=== PATIENT | female | born 1955 | race Caucasian/White ===

== ENCOUNTER 2016-12-01 14:54 | Emergency (ER) | payer OTHER ==
[~2016-12-01] VITALS: Ht 182.9 cm; Wt 76.7 kg
[2016-12-01] MEDS ORDERED: ONDANSETRON PF 4 MG/2 ML VIAL. IV ONE (16:00)
[2016-12-01] MEDS ORDERED: PROPOFOL 10 MG/ML (50ML) VIAL. IV ONE (16:00)
[2016-12-01] MEDS ORDERED: fentaNYL PF VIAL 100 MCG/2 ML VIAL IV ONE (16:00)
[2016-12-01 17:14] VITALS: BP 188/80
--- NOTE | 2016-12-01 17:47 | PHYS DOC ---
Past Medical History Past Medical History: Arthritis, Other Additional Past Medical Histor: L)shoulder dislocation x3,R)knee arthritis Past Surgical History: Angioplasty Alcohol Use: Occasionally Drug Use: None Adult General Chief Complaint Chief Complaint: SHOULDER INJURY HPI HPI Patient is a 61 year old female who presents with presents for left shoulder pain for the past few days. States she rotated her shoulder and felt it pop out , she went to outside ED and was told had normal shoulder XR and to f/u with ortho clinic and wear sling. Ortho clinic repeated XR today and noted dislocation, so sent her here. She denies numbness, tingling, other injury or pain. States has dislocated this shoulder prior. No weakness, but has limitation in ROM of left shoulder due to pain and likely dislocation. Review of Systems Review of Systems Constitutional: Denies fever or chills [] Eyes: Denies change in visual acuity, redness, or eye pain [] HENT: Denies nasal congestion or sore throat [] Respiratory: Denies cough or shortness of breath [] Cardiovascular: No additional information not addressed in HPI [] GI: Denies abdominal pain, nausea, vomiting, bloody stools or diarrhea [] : Denies dysuria or hematuria [] Musculoskeletal: Denies back pain [] Integument: Denies rash or skin lesions [] Neurologic: Denies headache, focal weakness or sensory changes [] Endocrine: Denies polyuria or polydipsia [] Current Medications Current Medications Current Medications Medications (Trade) Dose Ordered Sig/Leena Start Time Stop Time Status Last Admin Dose Admin Fentanyl Citrate (Fentanyl 2ml Vial) 50 mcg 1X ONCE 12/01/16 16:00 12/01/16 16:01 DC 12/01/16 16:45 50 MCG Ondansetron HCl (Zofran) 4 mg 1X ONCE 12/01/16 16:00 12/01/16 16:01 DC 12/01/16 16:41 4 MG Propofol (Diprivan) 80 mg 1X ONCE 12/01/16 16:00 12/01/16 16:01 DC 12/01/16 17:13 80 MG Allergies Allergies Allergies Coded Allergies Type Severity Reaction Last Updated Verified codeine Allergy Intermediate "[place] like having a heart attack. Like my heart raced." 12/01/16 Yes Uncoded Allergies Type Severity Reaction Last Updated Verified Magnetic Contrast Allergy Unknown Hives 12/01/16 Physical Exam Physical Exam Constitutional: Well developed, well nourished, no acute distress, non-toxic appearance. [] HENT: Normocephalic, atraumatic, bilateral external ears normal, oropharynx moist, no oral exudates, nose normal. [] Eyes: PERRLA, EOMI. [] Neck: Normal range of motion, supple. [] Cardiovascular:Heart rate regular rhythm [] Lungs & Thorax: Bilateral breath sounds clear to auscultation [] Abdomen: Bowel sounds normal, soft, no tenderness. [] Skin: Warm, dry, no erythema, no rash. [] Back: No tenderness, no CVA tenderness. [] Extremities: LUE with step off deformity but no discoloration; Full ROM with elbow/wrist/hand; Shoulder ROM very limited due to pain; Can pronate/supinate; Can make fist/ok sign/thumb up/finger cross and spread; Can flex/ex wrist; Good radial pulse and brisk cap refill equal bilaterally; sensation intact to light touch m/u/r/ax nerves Neurologic: Alert and oriented X 3, normal motor function, normal sensory function, no focal deficits noted. [] Psychologic: Affect normal, judgement normal, mood normal. [] Current Patient Data Vital Signs Vital Signs Date Time Temp Pulse Resp B/P (MAP) Pulse Ox O2 Delivery O2 Flow Rate FiO2 12/01/16 17:14 98.2 80 18 97 12/01/16 16:45 Room Air 12/01/16 15:20 140/69 (92) Radiology/Procedures Radiology/Procedures Left shoulder x-ray IMPRESSION: Probable posterior subluxation or dislocation as outlined above DICTATED and SIGNED BY: LYNN RIVER MD DATE: 12/01/16 1503 Postreduction left shoulder x-ray as interpreted by me with no fracture or dislocation. Course & Med Decision Making Course & Med Decision Making Pertinent Labs and Imaging studies reviewed. (See chart for details) She tolerated sedation and reduction well. She has returned to baseline. She is ambulatory with a steady gait and ready to go home. Return precautions given. She understands and agrees with plan. Dragon Disclaimer Dragon Disclaimer This electronic medical record was generated, in whole or in part, using a voice recognition dictation system. Procedural Sedation Proc Sed Indication: Left shoulder dislocation reduction, closed Consent: I have discussed with the patient and/or the patient call center support representative the indication, alternatives, and the possible risks and /or complications of the planned procedure and the anesthesia methods. The patient and/or patient call center support representative appear to understand and agree to proceed. Pre-Sedation Documentation and Exam: As above Airway Assessment: normal. Prior History of Anesthesia Complications: none. ASA Classification: 2 Sedation/ Anesthesia Plan: IV fentanyl and IV propofol Medications Used: see nursing notes. Monitoring and Safety: The patient was placed on a embedded engineer and vital signs, pulse oximetry and level of consciousness were continuously evaluated throughout the procedure. The patient was closely monitored until recovery from the medications was complete and the patient had returned to baseline status. Respiratory therapy was on standby at all times during the procedure. (The following sections must be completed) Post-Sedation Vital Signs: See vitals Post-Sedation Exam: AOx3, ambulatory with a steady gait, shoulder immobilized, equal 2+ radial pulses, sensation intact to light touch m/u/r/ax nerves, can make ok sign/finger cross and spread/fist/thumb up, can flex/ex wrist and pronate/supinate Complications: none. Vital Signs Vital Signs Date Time Temp Pulse Resp B/P (MAP) Pulse Ox O2 Delivery O2 Flow Rate FiO2 12/01/16 17:14 98.2 80 18 97 12/01/16 16:45 Room Air 12/01/16 15:20 140/69 (92) Joint Reduction Procedure Joint Indication: Joint dislocation Consent: Consent was obtained. Procedure: The pre-reduction exam showed distal perfusion and neurologic function to be normal.. The patient was placed in the appropriate position. Anesthesia/pain control fentanyl IV and propofol IV. Reduction of the left shoulder was performed by traction counter traction. Post reduction films were obtained and revealed satisfactory reduction. A post-reduction exam revealed distal perfusion and neurologic function to be normal. The affected area was immobilized with shoulder immobilizer. The patient tolerated the procedure well. Complications: none. Departure Departure Impression: Primary Impression: Closed dislocation of left shoulder Disposition: 01 HOME, SELF-CARE Condition: STABLE Referrals: MATTHEW MARAVILLA MD (PCP) Patient Instructions: Shoulder Dislocation, [id number] Additional Instructions: Follow-up with your primary care doctor and orthopedics clinic. Return for any concerns. Problem Qualifiers Primary Impression: Closed dislocation of left shoulder Encounter type: initial encounter Qualified Codes: S43.005A - Unspecified dislocation of left shoulder joint, initial encounter Negrito MONROY MD Dec 01, 2016 17:47
--- NOTE | 2016-12-02 09:11 | RAD ---
Indication interval reduction. AP and Y views of the left shoulder were obtained at 1735 and are compared to an exam proximally to an after hours earlier. There is been interval reduction of previously identified dislocation. No fracture is seen.
== END 2016-12-01 18:25 | disposition home or self-care (01) ==
LOC: ER 14:54
DX: S43.005A Unspecified dislocation of left shoulder joint, initial encounter (principal); M19.90 Unspecified osteoarthritis, unspecified site; Z95.5 Presence of coronary angioplasty implant and graft; Z88.5 Allergy status to narcotic agent; Z91.041 Radiographic dye allergy status; X50.9XXA Other and unspecified overexertion or strenuous movements or postures, initial encounter; Y93.89 Activity, other specified; Y99.8 Other external cause status; Y92.89 Other specified places as the place of occurrence of the external cause
CPT/HCPCS: 23650; 73030; 96374; 99284; J2405; J2704; J3010

== ENCOUNTER → 2019-12-22 | Outpatient (CLI) | payer OTHER ==
--- NOTE | 2019-12-22 08:45 | KCIC ---
EXAM: DUAL ENERGY X-RAY ABSORPTIOMETRY (DEXA). HISTORY: Postmenopausal screening. FINDINGS: The lowest measured T-score is -1.6 in the left proximal femur, based on a bone mineral density of 0.744 g/cm^2. Refer to the worksheets for full detail. In comparison with the prior study of 02/05/2016, average bone mineral density at the lumbar spine has changed +6.2%, while the average density at the hips has changed -1.3%. IMPRESSION: Low bone mass. Bone mineral density yields a T-score between -1.0 and -2.5. Fracture risk is increased. FRAX was not calculated. METHODOLOGY: Dual energy x-ray absorptiometry was performed to measure bone mineral density. The following analysis is based on the 2019 Official Positions of the International Society for Clinical Densitometry: Measurements of the hips and the average of L1-L4 are preferred. When the spine and/or hip cannot be feasibly measured or interpreted, or in the setting of hyperparathyroidism, distal radial bone mineral density may be measured. The lumbar spine T-score is based on the average bone mineral density of L1-L4. In the setting of artifact or anatomic abnormality, some lumbar levels may be excluded, and the remaining levels used for calculation. A single lumbar level is not used for diagnosis, and if only a single level is available for assessment, another anatomic site will be used to assign a diagnosis. The hip T-score is based on the bone mineral density measurement of the femoral neck or total proximal femur of either side, whichever is lowest. Bilateral mean values are not used for diagnosis. The forearm T-score is derived from 33% of the distal radius of the nondominant forearm. For postmenopausal and perimenopausal women, and men age 50 or older, of all ethnic groups, T-scores are calculated through comparison of the current measurement with the NHANES III database standard for females aged 20-29 years. The lowest T-score of the evaluated anatomic sites is used to assign a diagnosis based on the World Health Organization densitometric classification. In premenopausal females and males younger than age 50, a Z-score is calculated based on population specific reference data for patient sex and self-reported ethnicity. Electronically signed by: Crystal Jaramillo MD (12/22/2019 8:42 AM) [id number]
== END | disposition home or self-care (01) ==
LOC: KCIC DEXA 07:58
PROVIDERS: ATTEND Family Medicine
DX: M89.8X8 Other specified disorders of bone, other site (principal)
CPT/HCPCS: 77080

== ENCOUNTER 2021-09-06 16:54 | Emergency (ER) | payer OTHER ==
[~2021-09-06] VITALS: Ht 182.9 cm; Wt 78.6 kg
--- NOTE | 2021-09-06 18:15 | PHYS DOC ---
Past Medical History Past Medical History: A-Fib, Arthritis, Hypertension, VA, Other Additional Past Medical Histor: L)shoulder dislocation x3,R)knee arthritis, RA Past Surgical History: Angioplasty Smoking Status: Never Smoker Alcohol Use: Occasionally Drug Use: None General Adult EDM: Chief Complaint: MULTIPLE COMPLAINTS HPI: HPI: Patient is a 66 year old female who is here with multiple, vague complaints. Symptoms have been present for 2 or 3 days. She reports that "I just feel off." She indicates she has intermittent lightheadedness/dizziness, with abrupt standing only. She denies any symptoms of vertigo. She denies fall, head injury, syncope. She denies any focal motor weakness. She denies abdominal pain, chest pain, palpitations, dyspnea, nausea, vomiting, diarrhea, constipat ion. She denies any urinary symptoms. She denies fevers or chills. She reports that she had a brief episode of some mild myalgias, she took her temperature, noticed it was normal, then she took an at-home Covid test which was negative. She has been repeatedly checking her blood pressure at home with 2 different cuffs and has been increasingly worried about elevated blood pressu re readings. She has not yet contacted her PCP for this problem. She reports being fully vaccinated against COVID-19, including booster vaccination. She reports that she is eating and drinking well. She denies any injury or trauma. He denies any new stress or anxiety symptoms. She reports compliance with all of her medications. Review of Systems: Review of Systems: Constitutional: Denies fever or chills. [] Eyes: Denies change in visual acuity. [] HENT: Denies nasal congestion or sore throat. [] Respiratory: Denies cough or shortness of breath. [] Cardiovascular: Denies chest pain, palpitations, denies peripheral edema. Denies syncope GI: Denies abdominal pain, nausea, vomiting, or diarrhea : Denies urinary symptoms Musculoskeletal: Denies back pain or joint pain. [] Integument: Denies rash. [] Neurologic: Denies headache, focal weakness or sensory changes. Reports mild intermittent dizziness. Denies vertigo. Denies syncope, head injury or loss of consciousness Psychiatric: Denies depression or anxiety. [] Heart Score: C/O Chest Pain: No Risk Factors: Risk Factors: DM, Current or recent (<one month) smoker, HTN, HLP, family history of CAD, obesity. Risk Scores: Score 0 - 3: 2.5% MACE over next 6 weeks - Discharge Home Score 4 - 6: 20.3% MACE over next 6 weeks - Admit for Clinical Observation Score 7 - 10: 72.7% MACE over next 6 weeks - Early Invasive Strategies Allergies: Allergies: Allergies Coded Allergies Type Severity Reaction Last Updated Verified codeine Allergy Intermediate "[place] like having a heart attack. Like my heart raced." 12/01/16 Yes Uncoded Allergies Type Severity Reaction Last Updated Verified Magnetic Contrast Allergy Unknown Hives 12/01/16 Physical Exam: PE: Constitutional: Well developed, well nourished, no acute distress, non-toxic appearance. [] HENT: Normocephalic, atraumatic, bilateral external ears normal, oropharynx moist, no oral exudates, nose normal. [] Eyes: PERRL, EOMI, conjunctiva normal, no discharge. No scleral icterus. No nystagmus. Neck: Normal range of motion, no tenderness, supple, no stridor. No thyromegaly. No meningismus. Trachea is midline. Cardiovascular:Heart rate regular rhythm, was 2 radial pulses, +2 posterior tibial pulses bilaterally Lungs & Thorax: Bilateral breath sounds clear to auscultation, no rales, rhonchi or wheezes. No evidence of chest or thorax trauma. Abdomen: Abdomen is soft, nondistended, nontender to palpation. No palpable masses organomegaly. No CVA tenderness. Skin: Warm, dry, no erythema, no rash. Open wounds. No jaundice. Chronic venous stasis skin changes bilateral lower extremities, right worse than left, present for years, no change today. Back: No tenderness, no CVA tenderness. [] Extremities: No tenderness, no cyanosis, no clubbing, ROM intact, no edema. No calf tenderness. Neurologic: Alert and oriented X 3, normal motor function, normal sensory function, no focal deficits noted. [] Psychologic: Mildly anxious but pleasant and cooperative. Current Patient Data: Vital Signs: Vital Signs Date Time Temp Pulse Resp B/P (MAP) Pulse Ox O2 Delivery O2 Flow Rate FiO2 09/06/21 17:07 97.7 81 16 161/103 (122) 96 Room Air 97.7 EKG: EKG: EKG is interpreted at 1740 Rhythm is sinus Rate is 73 bpm [place] is left No STEMI Radiology/Procedures: Radiology/Procedures: IMAGING REPORT Signed PATIENT: STEFFANY FUENTES ACCOUNT: [id number] : 1955 LOCATION: ER AGE: 66 SEX: F EXAM STATUS: PRE ER ORD. PHYSICIAN: VALARIE VALDIVIA DO REASON: dizziness PROCEDURE: CT HEAD WO CONTRAST EXAMINATION: CT head without IV contrast INDICATION:66 years, Female, dizziness. COMPARISON: None TECHNIQUE: Spiral acquisition of contiguous images from the skull base to the vertex were obtained. Sagittal and coronal 2D reformatted series were provided by the technologist. Soft tissue and bone window algorithms were reviewed. Exposure: One or more of the following individualized dose reduction techniques were utilized for this examination: 1. Automated exposure control 2. Adjustment of the mA and/or kV according to patient size 3. Use of iterative reconstruction technique. FINDINGS: Neither mass, midline shift, intracranial hemorrhage, acute/subacute ischemic changes, nor extraaxial fluid collections are seen. Brain parenchymal volume loss. Supratentorial periventricular white matter hypodensities, indeterminate but most likely representing chronic microangiopathic disease. The ventricular system is within normal limits of variation. The paranasal sinuses, mastoid air cells, and middle ears are clear.The orbital contents appear within normal limits. IMPRESSION: 1. No evidence of acute intracranial abnormality. 2. Supratentorial periventricular white matter hypodensities, indeterminate but most likely representing chronic microangiopathic disease. Electronically signed by: Chel Lugo DO (09/06/2021 7:21 PM) [facility] DICTATED and SIGNED BY: CHEL LUGO DO DATE: 09/06/211918 Course & Med Decision Making: Course & Med Decision Making Pertinent Labs and Imaging studies reviewed. (See chart for details) The findings, differential diagnosis and plan of care discussed with her. There is no obvious evidence of acute life-threatening pathology on ED work-up today. She has no pain or physical complaints. No focal weakness, nonfocal exam, no current indication for further invasive exams, imaging or admission at this time based on current clinical presentation. I strongly urged her to contact her PCP for follow-up and for further discussion of the symptoms. Return precautions are given. [place] Disclaimer: Dragon Disclaimer: This electronic medical record was generated, in whole or in part, using a voice recognition dictation system. Departure Departure Impression: Primary Impression: Dizziness Disposition: 01 HOME / SELF CARE / HOMELESS Condition: STABLE Referrals: MATTHEW MARAVILLA MD (PCP) Patient Instructions: Dizziness Additional Instructions: Return to the ER for chest pain, shortness of breath, focal weakness, passing out, losing consciousness, acute injury or trauma, severe abdominal pain, uncontrolled vomiting, dehydration or any other concerns. Please contact Dr. Maravilla to discuss your symptoms further. You may continue taking your me dications as directed. You may need to have your medications adjusted, you may need to be placed on new or higher doses of blood pressure medications if your blood pressure continues to elevate. There is no evidence of acute life- threatening blood pressure readings here. VALARIE VALDIVIA DO Sep 06, 2021 18:15
[2021-09-06 18:42] LABS: BASO # 0.1 x10^3/uL (0.0-0.2); BASO % 1 % (0-3); EOS # 0.1 x10^3/uL (0.0-0.7); EOS % 1 % (0-3); HEMATOCRIT 45.2 % (36.0-47.0); HEMOGLOBIN 15.5 g/dL (12.0-15.5); LYMPH # 1.8 x10^3/uL (1.0-4.8); LYMPH % 32 % (24-48); MEAN CORPUSCULAR HEMOGLOBIN 32 pg (25-35); MEAN CORPUSCULAR HGB CONC 34 g/dL (31-37); MEAN CORPUSCULAR VOLUME 92 fL (79-100); MONO # 0.4 x10^3/uL (0.0-1.1); MONO % 7 % (0-9); NEUT # 3.2 x10^3/uL (1.8-7.7); NEUT % 58 % (31-73); PLATELET COUNT 224 x10^3/uL (140-400); RED BLOOD COUNT 4.89 x10^6/uL (3.50-5.40); RED CELL DISTRIBUTION WIDTH 13.4 % (11.5-14.5); WHITE BLOOD COUNT 5.5 x10^3/uL (4.0-11.0)
[2021-09-06 19:03] LABS: BACTERIA,URINE 0 /HPF (0-FEW); HYALINE CASTS, URINE OCCASIONAL /HPF
[2021-09-06 19:12] LABS: CALCIUM 9.5 mg/dL (8.5-10.1); CREATININE 1.3 mg/dL (0.6-1.0); GFR 41.2; POTASSIUM 3.8 mmol/L (3.5-5.1)
[2021-09-06 19:19] LABS: ALBUMIN 4.4 g/dL (3.4-5.0); ALBUMIN/GLOBULIN RATIO 1.2 (1.0-1.7); MAGNESIUM 2.3 mg/dL (1.8-2.4); PHOSPHORUS 3.8 mg/dL (2.6-4.7); TOTAL BILIRUBIN 0.6 mg/dL (0.2-1.0); TOTAL PROTEIN 8.2 g/dL (6.4-8.2)
--- NOTE | 2021-09-06 19:23 | RAD ---
EXAMINATION: CT head without IV contrast INDICATION:66 years, Female, dizziness. COMPARISON: None TECHNIQUE: Spiral acquisition of contiguous images from the skull base to the vertex were obtained. S agittal and coronal 2D reformatted series were provided by the technologist. Soft tissue and bone win karen algorithms were reviewed. Exposure: One or more of the following individualized dose reduction techniques were utilized for thi s examination: 1. Automated exposure control 2. Adjustment of the mA and/or kV according to patient size 3. Use of iterative reconstruction technique. FINDINGS: Neither mass, midline shift, intracranial hemorrhage, acute/subacute ischemic changes, nor extraaxial fluid collections are seen. Brain parenchymal volume loss. Supratentorial periventricular white mat ter hypodensities, indeterminate but most likely representing chronic microangiopathic disease. The v entricular system is within normal limits of variation. The paranasal sinuses, mastoid air cells, and middle ears are clear.The orbital contents appear withi n normal limits. IMPRESSION: 1. No evidence of acute intracranial abnormality. 2. Supratentorial periventricular white matter hypodensities, indeterminate but most likely represen ting chronic microangiopathic disease. Electronically signed by: Alli Lugo DO (09/06/2021 7:21 PM) [facility]
[2021-09-06 19:33] VITALS: BP 145/70
--- NOTE | 2021-09-06 19:54 | EKG ---
[facility] [address] [place] [address] Test Date: 2021-09-06 Test Time: 17:37:53 Pat Name: STEFFANY FUENTES Department: Room: Gender: F Invasive Cardiologist: : 1955 Requested By: VALARIE VALDIVIA Order Number: [id number] Reading MD: Chucho Bloom MD Measurements Intervals [place] Rate: 73 P: 38 RI: 186 QRS: -2 QRSD: 82 T: 47 QT: 396 QTc: 440 Interpretive Statements SINUS RHYTHM Electronically Signed On 09-09-2021 7:08:33 CDT by Chucho Bloom MD
== END 2021-09-06 20:00 | disposition home or self-care (01) ==
LOC: ER 16:54
DX: R42 Dizziness and giddiness (principal); I48.91 Unspecified atrial fibrillation; M19.90 Unspecified osteoarthritis, unspecified site; I10 Essential (primary) hypertension; I25.2 Old myocardial infarction; Z88.5 Allergy status to narcotic agent
CPT/HCPCS: 36415; 70450; 80053; 81001; 82550; 83735; 84100; 84484; 85025; 93005; 99285